=== PATIENT | male | born 1975 | race Two or more races ===

== ENCOUNTER 2017-08-30 23:18 | Inpatient (IN) | payer OTHER ==
[~2017-08-30] VITALS: Ht 167.6 cm; Wt 91.2 kg
[2017-08-31 03:13] VITALS: BP 151/96
[2017-08-31] MEDS ORDERED: IBUPROFEN 400 MG TABLET PO PRN (03:30)
[2017-08-31] MEDS ORDERED: HYDROCODONE/APAP 5/325MG 1 EACH TABLET PO PRN ×2 (03:30→04:00)
[2017-08-31] MEDS ORDERED: FEBU80TA PO (03:40)
[2017-08-31] MEDS ORDERED: OMEP40CA37 PO (03:40)
[2017-08-31 04:00] VITALS: BP 152/88
[2017-08-31] MEDS ORDERED: ZOLPIDEM TARTRATE 5 MG TABLET PO PRN (04:00)
[2017-08-31] MEDS ORDERED: INSULIN REGULAR, HUMAN 100 UNIT/ML 3 ML VIAL SQ PRN (04:00)
[2017-08-31] MEDS ORDERED: HYDROCODONE/APAP 10/325MG 1 EA TABLET PO PRN (04:00)
[2017-08-31] MEDS ORDERED: MAG HYDROX/AL HYDROX/SIMETH 30 ML UDC PO PRN (04:00)
[2017-08-31] MEDS ORDERED: MAGNESIUM HYDROXIDE 30 ML UDC PO PRN (04:00)
[2017-08-31] MEDS ORDERED: ONDANSETRON HCL/PF 4 MG/2 ML VIAL IVP PRN (04:00)
[2017-08-31] MEDS ORDERED: DEXTROSE 50%-WATER 50 ML DISP.SYRIN IV PRN ×2 (04:00→10:30)
[2017-08-31] MEDS ORDERED: ACETAMINOPHEN 325 MG TABLET PO PRN (04:00)
[2017-08-31] MEDS: IV NS 0.9% 1,000 ML IV PRN ×2 (04:11→15:18)
[2017-08-31] MEDS ORDERED: HYDROCODONE/APAP 5/325MG 1 EACH TABLET ONE (04:21)
[2017-08-31] MEDS ORDERED: BLOOD SUGAR DIAGNOSTIC 1 EACH STRIP IN SCH (07:30)
--- NOTE | 2017-08-31 07:38 | NUR ---
LEGAL ADMINISTRATIVE ASSISTANT NOTE PATIENT IN BED , ALL NEEDS ATTENDED, PLAN OF CARE DISCUSSED WITH PATIENT , PATIENT ALERT , ORIENTED X3 ,ON TELE MONITOR SR , CALL LIGHT WITHIN REACH, BLOOD SUGAR 306 MG\ DL ,CALLED PHARMACY TO BRING INSULIN COVERAGE , RESPIRATION EVEN UNLABORED , BED IN LOWEST AND LOCKED POSITION , ON IVF ORDERED, RT AC HL INTACT , WILL CONT TO MONITOR CLOSELY
[2017-08-31 07:39] LABS: BASOPHILS # (AUTO) 0.1 /CMM (0.0-0.2); BASOPHILS % (AUTO) 0.5 % (0.0-2.0); EOSINOPHILS # (AUTO) 0.4 /CMM (0.0-0.7); EOSINOPHILS % (AUTO) 3.6 % (0.0-6.0); HEMATOCRIT 43 % (39-51); HEMOGLOBIN 14.6 g/dL (13.5-17.5); LYMPHOCYTES # (AUTO) 2.5 /CMM (0.8-4.8); LYMPHOCYTES % (AUTO) 23.3 % (20.0-44.0); MEAN CORPUSCULAR HEMOGLOBIN 28 PG (26.0-33.0); MEAN CORPUSCULAR HGB CONC 34 g/dl (31.0-36.0); MEAN CORPUSCULAR VOLUME 82 fL (80-96); MONOCYTES # (AUTO) 0.7 /CMM (0.1-1.30); MONOCYTES % (AUTO) 6.9 % (2.0-12.0); NEUTROPHILS # (AUTO) 6.9 /CMM (1.8-8.9); NEUTROPHILS % (AUTO) 65.7 % (43.0-81.0); PLATELET COUNT (AUTO) 190 /CMM (150-450); RDW COEFFICIENT OF VARIATION 13.8 (11.5-15.0); RED BLOOD CELL COUNT(AUTO) 5.18 MIL/uL (4.5-6.0); WHITE BLOOD COUNT (AUTO) 10.5 K/uL (4.3-11.0)
[2017-08-31 08:00] VITALS: BP_SYST 141; BP_SYST 145; BP_DIAS 63; BP_DIAS 85
[2017-08-31 08:00] LABS: CALCIUM, SERUM 8.4 mg/dL (8.5-10.1); CREATININE 0.9 mg/dL (0.6-1.3); PHOSPHORUS 3.6 mg/dL (2.5-4.9); POTASSIUM 4.2 mmol/L (3.5-5.1)
[2017-08-31 08:07] LABS: THYROID STIMULATING HORMONE 3.232 uIU/mL (0.358-3.74)
[2017-08-31] MEDS: PANTOPRAZOLE 40 MG TABLET.DR PO SCH (08:34)
[2017-08-31] MEDS: predniSONE 10 MG TABLET PO SCH (08:35)
[2017-08-31] MEDS: LISINOPRIL (10MG) 10 MG TABLET PO SCH (08:35)
[2017-08-31] MEDS: HYDROXYCHLOROQUINE 200 MG TABLET PO SCH (08:35)
[2017-08-31] MEDS: METFORMIN 500 MG TABLET PO SCH ×2 (08:35→16:20)
[2017-08-31] MEDS: COLCHICINE 0.6 MG TABLET PO SCH (08:35)
[2017-08-31] MEDS ORDERED: PROBENECID 500 MG TABLET PO SCH (09:00)
--- NOTE | 2017-08-31 10:25 | NUR ---
CAN RUNNER NOTE X RAY LT KNEE DONE , ALL NEEDS ATTENDED, UA COLLECTED ORDERED ,WILL CONT ON IVF, NOT IN ACUTE DISTRESS
--- NOTE | 2017-08-31 10:28 | NUR ---
MULTI SLIDE MACHINE TENDER NOTE SEEN BY ASHLEY RN LEATHER STRETCHER AWARE THAT BLOOD SUGAR IN AM 306 MG\ DL INCREASED COVERAGE WITH MOD SLIDING SCALE
[2017-08-31] MEDS ORDERED: *INSULIN REGULAR(HUMULIN R)HUM 100 UNIT/ML VIAL SQ PRN (10:30)
[2017-08-31] MEDS: INSULIN REGULAR, HUMAN 100 UNIT/ML 3 ML VIAL SQ PRN ×2 (12:17→17:29)
[2017-08-31 12:20] VITALS: BP 116/75
[2017-08-31] MEDS: BLOOD SUGAR DIAGNOSTIC 1 EACH STRIP VI SCH ×3 (12:22→21:37)
--- NOTE | 2017-08-31 14:03 | NUR ---
Patient lives in [place] with family. He is ambulatory and independent with adl's. Will advice patient to f/u with pcp once discharge. Addendum: 08/31/17 at 1404 by DAYTON RIVAS RN Amended: Links added.
--- NOTE | 2017-08-31 15:30 | NUR ---
PULMONARY FUNCTION TECHNOLOGIST NOTE CONT ON IVF ORDERED ,ABLE TO URINATE WELL ABLE TO TO GO BR , ALL NEEDS ATTENDED ,NO S\S HYPO \HYPERGLYCEMIC REACTION NOTED ,WILL CONT TO MONITOR CLOSELY
[2017-08-31 16:00] VITALS: BP 107/72
--- NOTE | 2017-08-31 18:44 | NUR ---
MS RN NOTE ON IVF ORDERED , HAVING DINNER ,ABLE TO EAT SELF, NO C\O ANY DISCOMFORT AT THIS TIME,FAMILY AT BEDSIDE
--- NOTE | 2017-08-31 19:30 | NUR ---
RN INITIAL NOTES RECEIVED PATIENT SITTING UP AT EDGE OF BED. PATIENT IS ALERT AND ORIENTED, ABLE TO MAKE NEEDS KNOWN. PATIENT DENIES ANY PAIN AND DISCOMFORT AT THIS TIME. ON ROOM AIR WITH NO DISTRESS. PATIENT ABLE TO AMBULATE WITH STEADY GAIT, NO DIFFICULTY AND NO WEAKNESS NOTED. IVF ORDERED ON PATIENT'S R AC, FLUSHED AND PATENT, NO SIGNS OF INFILTRATION. PATIENT'S NEEDS ANTICIPATED AND MET. SAFETY AND COMFORT ENSURED. BED IN LOW AND LOCKED POSITION. CALL LIGHT IN REACH. WILL MONITOR FOR ANY CHANGES IN CONDITION.
[2017-08-31 20:00] VITALS: BP 96/53
[2017-08-31] MEDS ORDERED: INSULIN DETEMIR 100 UNIT/ML CARTRIDGE SQ SCH (22:00)
[2017-09-01] MEDS: IV NS 0.9% 1,000 ML IV PRN (01:33)
[2017-09-01 04:00] VITALS: BP 102/72
--- NOTE | 2017-09-01 07:26 | NUR ---
RN NOTES PATIENT WAS REFUSING SUGAR CHECK THIS MORNING. CHECKED NOW AND IS 262. WILL ADMIN INSULIN.
[2017-09-01 08:00] VITALS: BP 123/78
[2017-09-01] MEDS: COLCHICINE 0.6 MG TABLET PO SCH (08:29)
[2017-09-01 08:30] VITALS: BP 123/78
[2017-09-01] MEDS: HYDROXYCHLOROQUINE 200 MG TABLET PO SCH (08:30)
[2017-09-01] MEDS: METFORMIN 500 MG TABLET PO SCH (08:30)
[2017-09-01] MEDS: LISINOPRIL (10MG) 10 MG TABLET PO SCH (08:30)
[2017-09-01] MEDS: predniSONE 10 MG TABLET PO SCH (08:30)
[2017-09-01] MEDS: PANTOPRAZOLE 40 MG TABLET.DR PO SCH (08:30)
[2017-09-01] MEDS: INSULIN REGULAR, HUMAN 100 UNIT/ML 3 ML VIAL SQ PRN ×2 (08:31→11:40)
[2017-09-01] MEDS: BLOOD SUGAR DIAGNOSTIC 1 EACH STRIP VI SCH ×2 (08:33→11:40)
[2017-09-01] MEDS ORDERED: PROBENECID 500 MG TABLET PO SCH (09:00)
[2017-09-01] MEDS ORDERED: METF500T4 PO (13:47)
[2017-09-01] MEDS ORDERED: LISI10TA59 PO (13:47)
[2017-09-01] MEDS ORDERED: Blood Sugar Diagnostic VI (13:47)
[2017-09-01] MEDS ORDERED: *INS REG SQ (13:47)
[2017-09-01] MEDS ORDERED: INSU100I19 SQ (13:47)
--- NOTE | 2017-09-01 15:01 | NUR ---
RELAY RECORD CLERK NOTE DISCHARGE INSTRUCTIONS AND TEACHING GIVEN TO PATIENT AND ABLE TO UNDERSTAND. ALL PAPERWORK SIGNED AND BELONGINGS ACCOUNTED FOR. IV REMOVED AND PRESSURE APPLIED, NO BLEEDING NOTED AT THE SITE. FLU SHOT NOT GIVEN PATIENT REFUSES VACCINE. PATIENT LEFT IN STABLE CONDITION, NO SOB OR DISTRESS, PATIENT DENIES PAIN. PATIENT LEFT AMBULATORY, BY CAR TO HOME
== END 2017-09-01 14:59 | disposition home or self-care (01) | DRG 420 ==
LOC: TELE1 08-31 02:50 → MEDSG1 08-31 11:00
PROVIDERS: ADMIT Nurse Practitioner Acute Care; ATTEND Nurse Practitioner Acute Care
DX: E11.00 Type 2 diabetes mellitus with hyperosmolarity without nonketotic hyperglycemic-hyperosmolar coma (NKHHC) (principal); E88.81 Metabolic syndrome and other insulin resistance; I10 Essential (primary) hypertension; E87.1 Hypo-osmolality and hyponatremia; D72.829 Elevated white blood cell count, unspecified; M10.9 Gout, unspecified; E78.5 Hyperlipidemia, unspecified; E11.65 Type 2 diabetes mellitus with hyperglycemia; M06.9 Rheumatoid arthritis, unspecified; K21.9 Gastro-esophageal reflux disease without esophagitis; E66.9 Obesity, unspecified; Z68.32 Body mass index [BMI] 32.0-32.9, adult; E78.1 Pure hyperglyceridemia; Z79.4 Long term (current) use of insulin; Z79.84 Long term (current) use of oral hypoglycemic drugs; Z79.899 Other long term (current) drug therapy
CPT/HCPCS: 36415; 73564-TC; 80048-TC; 80061-TC; 82962-TC; 83735-TC; 83935-TC; 84100-TC; 84300-TC; 84443-TC; 85025-TC; 87081-TC; J1815; J7030; Z7610

== ENCOUNTER 2018-04-26 01:53 | Inpatient (IN) | payer OTHER ==
[~2018-04-26] VITALS: Ht 167.6 cm; Wt 98.9 kg
[~2018-04-26 01:53] MED LIST: *INS REG SQ; Blood Sugar Diagnostic VI; FEBU80TA PO; INSU100I19 SQ; LISI10TA59 PO; METF500T6 PO; OMEP40CA37 PO
--- NOTE | 2018-04-26 06:25 | NUR ---
RN NOTE PT WAS TRANSFERRED FROM [place] AND ARRIVED TO UNIT AT 0625. LEFT HAND IV NOTED. VITALS: BP- 136/92 HR-90 RR-16. WILL ENDORSE TO ESTEFANI TINOCO FOR SUNSHINE
[2018-04-26 08:00] VITALS: BP 129/79
--- NOTE | 2018-04-26 08:00 | NUR ---
PT. ADM. TO RM.306-1.ALERT AND ORIENTED X4.STATES SOME PAIN RT. ELBOW.
[2018-04-26] MEDS ORDERED: LEFL20TA PO (08:34)
[2018-04-26] MEDS ORDERED: SULI200T4 PO (08:34)
[2018-04-26] MEDS ORDERED: LISI10TA5 PO (08:34)
[2018-04-26] MEDS ORDERED: COLC0.6C PO (08:34)
[2018-04-26] MEDS ORDERED: INSU100I14 SQ (08:34)
[2018-04-26] MEDS ORDERED: METF500T6 PO (08:34)
[2018-04-26] MEDS ORDERED: ATOR10TA PO (08:34)
[2018-04-26] MEDS ORDERED: INSU100I26 SQ (08:34)
[2018-04-26] MEDS ORDERED: ALLO300T2 PO (08:34)
[2018-04-26] MEDS ORDERED: PROB500T9 PO (08:34)
[2018-04-26] MEDS ORDERED: DEXTROSE 50%-WATER 50 ML DISP.SYRIN IV PRN ×2 (09:00→10:30)
[2018-04-26] MEDS: BLOOD SUGAR DIAGNOSTIC 1 EACH STRIP IN SCH ×4 (09:14→21:41)
[2018-04-26] MEDS: INSULIN REGULAR, HUMAN 100 UNIT/ML 3 ML VIAL SQ PRN ×4 (09:16→21:53)
[2018-04-26] MEDS ORDERED: ONDANSETRON HCL/PF 4 MG/2 ML VIAL IVP PRN (10:30)
[2018-04-26] MEDS ORDERED: ZOLPIDEM TARTRATE 5 MG TABLET PO PRN (10:30)
[2018-04-26] MEDS ORDERED: ACETAMINOPHEN 325 MG TABLET PO PRN (10:30)
[2018-04-26] MEDS ORDERED: HYDROCODONE/APAP 5/325MG 1 EACH TABLET PO PRN (10:30)
[2018-04-26] MEDS ORDERED: MAG HYDROX/AL HYDROX/SIMETH 30 ML UDC PO PRN (10:30)
[2018-04-26] MEDS ORDERED: MAGNESIUM HYDROXIDE 30 ML UDC PO PRN (10:30)
[2018-04-26] MEDS ORDERED: HYDROCODONE/APAP 10/325MG 1 EA TABLET PO PRN (10:30)
--- NOTE | 2018-04-26 10:30 | NUR ---
FAMILY IN TO VISIT.
[2018-04-26] MEDS: IV NS 0.9% 1,000 ML IV PRN (11:29)
[2018-04-26] MEDS: CEFTRIAXONE 1 G in IV D5W 50 ML IV SCH (11:30)
[2018-04-26] MEDS ORDERED: VANCOMYCIN 1.25 GM in IV D5W 500 ML IV SCH (12:00)
[2018-04-26] MEDS ORDERED: BLOOD SUGAR DIAGNOSTIC 1 EACH STRIP IN SCH (12:00)
[2018-04-26] MEDS ORDERED: FEE PK DOSING 1 MIN EA MC ONE (12:20)
[2018-04-26] MEDS: VANCOMYCIN 1 GM in IV D5W 250 ML IV SCH (14:31)
--- NOTE | 2018-04-26 15:00 | NUR ---
PHOTO DONE OF RT. ARM,MRSA SMEAR DONE.
[2018-04-26 16:00] VITALS: BP 127/75
--- NOTE | 2018-04-26 18:00 | NUR ---
NO CHG. IN STATUS.
[2018-04-26] MEDS: COLCHICINE 0.6 MG TABLET PO SCH (18:13)
[2018-04-26] MEDS ORDERED: INSU300I SQ (18:17)
[2018-04-26] MEDS ORDERED: ERGO500040 PO (18:17)
--- NOTE | 2018-04-26 19:25 | NUR ---
MSRN VISITOR AT BEDSIDE
[2018-04-26 20:00] VITALS: BP 135/83
[2018-04-26] MEDS: ATORVASTATIN 10 MG TABLET PO SCH (21:40)
[2018-04-26] MEDS: SULINDAC 200 MG TABLET PO SCH (21:41)
[2018-04-26] MEDS: INSULIN GLARGINE, 100 UNIT/ML CARTRIDGE SQ SCH (21:56)
--- NOTE | 2018-04-26 22:00 | NUR ---
DCRN BLOOD SUGAR WAS 228 COVERED WITH 20 UNITS LANTUS AND 4 UNITS OF REG INSULIN SQ PER S/S. SNACKS PROVIDED ATE WELL
[2018-04-27] MEDS: VANCOMYCIN 1 GM in IV D5W 250 ML IV SCH ×3 (00:28→20:49)
--- NOTE | 2018-04-27 02:36 | NUR ---
MSRN SLEEPING APPEARS COMFORTABLE
[2018-04-27 06:20] LABS: BASOPHILS % (AUTO) 0.3 % (0.0-2.0); EOSINOPHILS % (AUTO) 4.1 % (0.0-6.0); HEMATOCRIT 43 % (39-51); HEMOGLOBIN 14.7 g/dL (13.5-17.5); LYMPHOCYTES # (AUTO) 1.8 /CMM (0.8-4.8); LYMPHOCYTES % (AUTO) 18.8 % (20.0-44.0); MEAN CORPUSCULAR HEMOGLOBIN 29 PG (26.0-33.0); MEAN CORPUSCULAR HGB CONC 34 g/dl (31.0-36.0); MEAN CORPUSCULAR VOLUME 85 fL (80-96); MONOCYTES # (AUTO) 0.9 /CMM (0.1-1.30); MONOCYTES % (AUTO) 9.1 % (2.0-12.0); NEUTROPHILS # (AUTO) 6.6 /CMM (1.8-8.9); NEUTROPHILS % (AUTO) 67.7 % (43.0-81.0); PLATELET COUNT (AUTO) 186 /CMM (150-450); RDW COEFFICIENT OF VARIATION 13.7 (11.5-15.0); RED BLOOD CELL COUNT(AUTO) 5.05 MIL/uL (4.5-6.0); WHITE BLOOD COUNT (AUTO) 9.8 K/uL (4.3-11.0)
--- NOTE | 2018-04-27 06:45 | NUR ---
MSRN SLEEPING EASILY AWAKENED, WILL CHECK BLOOD SUGAR. PAIN RIGHT ELBOW TOLERABLE. NO NEEDS MADE.
[2018-04-27 06:47] LABS: CALCIUM, SERUM 8.9 mg/dL (8.5-10.1); CREATININE 1.1 mg/dL (0.6-1.3); PHOSPHORUS 3.7 mg/dL (2.5-4.9); POTASSIUM 4.2 mmol/L (3.5-5.1)
[2018-04-27] MEDS: INSULIN REGULAR, HUMAN 100 UNIT/ML 3 ML VIAL SQ PRN ×4 (07:49→21:51)
[2018-04-27 08:00] VITALS: BP 134/88
[2018-04-27] MEDS: BLOOD SUGAR DIAGNOSTIC 1 EACH STRIP IN SCH ×4 (08:27→21:42)
[2018-04-27] MEDS: IV NS 0.9% 1,000 ML IV PRN ×2 (08:27→21:03)
[2018-04-27] MEDS: LEFLUNOMIDE 10 MG TABLET PO SCH (08:29)
[2018-04-27] MEDS: COLCHICINE 0.6 MG TABLET PO SCH ×2 (08:29→18:22)
[2018-04-27] MEDS: ALLOPURINOL 100 MG TABLET PO SCH (08:30)
[2018-04-27] MEDS: SULINDAC 200 MG TABLET PO SCH ×2 (08:30→18:22)
[2018-04-27] MEDS: PANTOPRAZOLE 40 MG TABLET.DR PO SCH (08:31)
[2018-04-27] MEDS: LISINOPRIL (10MG) 10 MG TABLET PO SCH (08:32)
[2018-04-27] MEDS: CEFTRIAXONE 1 G in IV D5W 50 ML IV SCH (11:30)
[2018-04-27 16:00] VITALS: BP 119/73
--- NOTE | 2018-04-27 18:00 | NUR ---
PT. ALERT AND ORIENTED X4. NO COMPLAINTS OFFERED. IV INFUSING,VS STABLE. FAMILY IN TO VISIT.DR. ESPANA IN TO SEE PT.
[2018-04-27] MEDS: LACTOBACILLUS RHAMNOSUS GG 1 EACH CAP.SPRINK PO SCH (18:22)
--- NOTE | 2018-04-27 19:30 | NUR ---
RN NOTES RECEIVED PATIENT IN BED AWAKE, AO X 3, ABLE TO MAKE NEEDS KNOWN. NO ACUTE DISTRESS NOTED. DENIES ANY PAIN AT THIS TIME. IV SITE PATENT, INTACT. SAFETY REMINDERS GIVEN. ON LOW BED WITH BILATERAL UPPER SIDE RAILS UP. CALL STEELE WITHIN EASY REACH. WILL CONTINUE TO MONITOR.
[2018-04-27 20:00] VITALS: BP 126/74
[2018-04-27] MEDS: INSULIN GLARGINE, 100 UNIT/ML CARTRIDGE SQ SCH (21:44)
[2018-04-27] MEDS: ATORVASTATIN 10 MG TABLET PO SCH (21:46)
[2018-04-28] MEDS: VANCOMYCIN 1 GM in IV D5W 250 ML IV SCH ×2 (04:55→12:00)
--- NOTE | 2018-04-28 06:30 | NUR ---
RN NOTES PATIENT ASLEEP, EASILY AROUSABLE. RESPIRATIONS EVEN. NO SIGNS OF PAIN NOTED. DUE MEDS GIVEN WITH NO ASE NOTED. NEEDS ATTENDED. NO SYMPTOMS OF HYPER/HYPOGLYCEMIA. SAFETY PRECAUTIONS AND COMFORT MEASURES IN PLACE. WILL GIVE REPORT TO DAY SHIFT FOR CONTINUITY OF CARE.
[2018-04-28 06:32] LABS: BASOPHILS % (AUTO) 0.3 % (0.0-2.0); CALCIUM, SERUM 8.9 mg/dL (8.5-10.1); CREATININE 1.1 mg/dL (0.6-1.3); EOSINOPHILS % (AUTO) 5.2 % (0.0-6.0); HEMATOCRIT 42 % (39-51); HEMOGLOBIN 14.4 g/dL (13.5-17.5); LYMPHOCYTES # (AUTO) 1.8 /CMM (0.8-4.8); LYMPHOCYTES % (AUTO) 19.7 % (20.0-44.0); MEAN CORPUSCULAR HEMOGLOBIN 29 PG (26.0-33.0); MEAN CORPUSCULAR HGB CONC 35 g/dl (31.0-36.0); MEAN CORPUSCULAR VOLUME 84 fL (80-96); MONOCYTES # (AUTO) 0.8 /CMM (0.1-1.30); MONOCYTES % (AUTO) 8.4 % (2.0-12.0); NEUTROPHILS # (AUTO) 6.2 /CMM (1.8-8.9); NEUTROPHILS % (AUTO) 66.4 % (43.0-81.0); PLATELET COUNT (AUTO) 196 /CMM (150-450); RDW COEFFICIENT OF VARIATION 13.4 (11.5-15.0); RED BLOOD CELL COUNT(AUTO) 4.96 MIL/uL (4.5-6.0); WHITE BLOOD COUNT (AUTO) 9.3 K/uL (4.3-11.0)
[2018-04-28] MEDS: BLOOD SUGAR DIAGNOSTIC 1 EACH STRIP IN SCH ×2 (06:34→12:00)
[2018-04-28] MEDS: INSULIN REGULAR, HUMAN 100 UNIT/ML 3 ML VIAL SQ PRN (06:36)
--- NOTE | 2018-04-28 07:35 | NUR ---
MS RN OPENING NOTE PATIENT IS ALERT AND ORIENTED x4. NO PAIN AT THIS TIME. NO SOB OR DISTRESS NOTED. CALL LIGHT WITHIN REACH AND SAFETY MEASURES IMPLEMENTED. ABLE TO COMMUNICATE NEEDS. IV INTACT AND PATENT NO REDNESS OR SWELLING NOTED WITH IV FLUIDS RUNNING AT THIS TIME. BLOOD SUGAR TO BE MONITORED AND INSULIN TO BE GIVEN ACCORDINGLY. ON ROOM AIR TOLERATING WELL AT 99%. WILL CONTINUE TO MONITOR THROUGHOUT SHIFT
[2018-04-28 08:00] VITALS: BP 154/87
[2018-04-28 08:19] VITALS: BP 134/87
[2018-04-28] MEDS: COLCHICINE 0.6 MG TABLET PO SCH (08:19)
[2018-04-28] MEDS: ALLOPURINOL 100 MG TABLET PO SCH (08:19)
[2018-04-28] MEDS: LACTOBACILLUS RHAMNOSUS GG 1 EACH CAP.SPRINK PO SCH (08:19)
[2018-04-28] MEDS: PANTOPRAZOLE 40 MG TABLET.DR PO SCH (08:19)
[2018-04-28] MEDS: LISINOPRIL (10MG) 10 MG TABLET PO SCH (08:19)
[2018-04-28] MEDS: LEFLUNOMIDE 10 MG TABLET PO SCH (08:20)
[2018-04-28] MEDS: SULINDAC 200 MG TABLET PO SCH (08:20)
--- NOTE | 2018-04-28 09:50 | NUR ---
WOUND CARE CONSULT: PT HAS RESOLVING SWELLING TO RT ELBOW. NO OPEN WOUNDS NOTED. PT STATES FEELS MUCH BETTER. DEFER TO MD FOR ELBOW. WILL SEE PRN
[2018-04-28] MEDS: CEFTRIAXONE 1 G in IV D5W 50 ML IV SCH (10:26)
--- NOTE | 2018-04-28 10:45 | NUR ---
MAYELIN was informed by Dr. Terry Rosenthal that pt. would like a verification of admission letter for his employer. MAYELIN typed letter and gave it to the pt.
[2018-04-28] MEDS ORDERED: SULF1TAB48 PO (12:09)
--- NOTE | 2018-04-28 12:50 | NUR ---
TELEPHONE CLAIMS REPRESENTATIVE NOTE PATIENT SENT HOME IN STABLE CONDITION. ALL DUE MEDICATIONS GIVEN ORDERED. ALL NURSING CARE NEEDS ATTENDED TO NEEDED. IV REMOVED, SKIN INTACT. ALL BELONGINGS ACCOUNTED FOR AND WITH PATIENT AT DISCHARGE. ALERT AND ORIENTED x4, AMBULATORY. ABLE TO MAKE NEEDS KNOWN. VSS. DISCHARGE INSTRUCTIONS GIVEN TO PATIENT AND MOTHER AT BEDSIDE, BOTH ABLE TO RETURN VERBALIZATION OF INSTRUCTIONS BACK. PRESCRIPTION SENT ELECTRONICALLY TO [facility] IN [facility], CALLED AND CONFIRMED PRESCRIPTION. PATIENT REFUSED TO HAVE WOUND PICTURE DOCUMENTED AT DISCHARGE. LEFT VIA PRIVATE CAR WITH MOTHER.
== END 2018-04-28 12:50 | disposition home or self-care (01) | DRG 720 ==
LOC: MED 07:29
PROVIDERS: ADMIT Internal Medicine; ATTEND Internal Medicine
DX: A41.9 Sepsis, unspecified organism (principal); E87.2 Acidosis; E87.1 Hypo-osmolality and hyponatremia; L03.113 Cellulitis of right upper limb; E86.1 Hypovolemia; E78.5 Hyperlipidemia, unspecified; I10 Essential (primary) hypertension; E11.65 Type 2 diabetes mellitus with hyperglycemia; M06.9 Rheumatoid arthritis, unspecified; E66.9 Obesity, unspecified; K21.9 Gastro-esophageal reflux disease without esophagitis; M10.9 Gout, unspecified
CPT/HCPCS: 36415; 80048-TC; 80061-TC; 80202-TC; 82962-TC; 83605-TC; 83735-TC; 84100-TC; 85025-TC; 87081-TC; A6403; J0696; J1815; J3370; J7030; J7060

== ENCOUNTER 2018-10-11 16:37 | Inpatient (IN) | payer OTHER ==
[~2018-10-11] VITALS: Ht 167.6 cm; Wt 107.5 kg
[2018-10-11 16:00] VITALS: BP 128/71
[~2018-10-11 16:37] MED LIST changes: -*INS REG SQ; +ALLO300T2 PO; +ATOR10TA PO; -Blood Sugar Diagnostic VI; +COLC0.6C PO; +ERGO500040 PO; -FEBU80TA PO; -INSU100I19 SQ; +INSU300I SQ; +LEFL20TA PO; +LISI10TA5 PO; -LISI10TA59 PO; +METF-440 PO; -METF500T6 PO; +PROB500T9 PO; +SULF1TAB48 PO; +SULI200T4 PO
--- NOTE | 2018-10-11 16:42 | NUR ---
MS ENCODING CLERK NOTES RECEIVED PT FROM AMBULANCE STAFF IN STABLE CONDITION .PT IS A.O X4, NO SOB OR ACUTE SIGNS OF DISTRESS NOTED. BREATHING IS EVEN AND UNLABORED. PT ON RA AND SATING WELL. PT WILL BE ADMITTED UNDER ASHLEY (DEVELOPMENT ASSOCIATE) FOR POSSIBLE RIGHT WRIST SEPTIC JOINT. IV TO LEFT HAND 22G NOTED TO BE PATENT AND INTACT. NO REDNESS OR SIGNS OF INFILTRATION NOTED. MRSA SWAB COMPLETED. BELONGINGS VERIFIED BY TOY DEPARTMENT MANAGER. VSS. ADMSIION PHOTOCS TAKEN AND PLACED IN PT'S CHART. PT ORIENTED TO ROOM AND USE OF CALL LIGHT. BED IN LOW LOCKED POSITION, SIDE RAILS UP X2, CALL LIGHT WITHIN REACH. WILL CONTINUE ADMISSION PROCESS AND AWAIT FRO FURTHER DEVELOPMENT ASSOCIATE ORDERS.
[2018-10-11] MEDS ORDERED: DEXTROSE 50%-WATER 50 ML DISP.SYRIN IV PRN (17:00)
[2018-10-11] MEDS ORDERED: HYDROCODONE/APAP 5/325MG 1 EACH TABLET PO PRN (17:00)
[2018-10-11] MEDS ORDERED: ONDANSETRON HCL/PF 4 MG/2 ML VIAL IVP PRN (17:00)
[2018-10-11] MEDS ORDERED: MAGNESIUM HYDROXIDE 30 ML UDC PO PRN (17:00)
[2018-10-11] MEDS ORDERED: ACETAMINOPHEN 325 MG TABLET PO PRN (17:00)
[2018-10-11] MEDS ORDERED: MAG HYDROX/AL HYDROX/SIMETH 30 ML UDC PO PRN (17:00)
[2018-10-11] MEDS ORDERED: ZOLPIDEM TARTRATE 5 MG TABLET PO PRN (17:00)
[2018-10-11] MEDS: BLOOD SUGAR DIAGNOSTIC 1 EACH STRIP IN SCH ×2 (17:18→22:42)
[2018-10-11] MEDS: IV NS 0.9% 1,000 ML IV PRN (17:18)
[2018-10-11] MEDS: INSULIN REGULAR, HUMAN 100 UNIT/ML 3 ML VIAL SQ PRN ×2 (17:31→22:43)
[2018-10-11] MEDS: CEFTRIAXONE 1 G in IV D5W 50 ML IV SCH (17:47)
[2018-10-11 18:26] VITALS: BP 128/71
--- NOTE | 2018-10-11 18:38 | NUR ---
MS RN CLOSING NOTES PT REMAINS STABLE SINCE ADMISSION. IV REMAINS PATENT AND INTACT. HE CONTINUES TO TOLERATE NS AND ABX INFUSION WELL. HE DENIES PAIN AT THIS TIME. SAFETY MEASURES REMAIN IN PLACE. WILL ENDORSE TO NIGHTSHIFT RN FOR SUNSHINE
[2018-10-11 19:26] LABS: CALCIUM, SERUM 7.9 mg/dL (8.5-10.1); CREATININE 1.2 mg/dL (0.6-1.3); POTASSIUM 3.8 mmol/L (3.5-5.1)
--- NOTE | 2018-10-11 19:30 | NUR ---
MS/RN NOTES RECEIVED PT. SITTING UP IN BED. PT. IS AWAKE, ALERT AND ORIENTED X4. BREATHING EVEN AND UNLABORED ON ROOM AIR. NO SOB, RESPIRATORY DISTRESS OR COMPLAINTS OF PAIN NOTED AT THIS TIME. PT. WITH LEFT HAND 22 GAUGE PERIPHERAL IV PRESENT, PATENT AND INTACT ADMINISTERING TO PT. NS @ 75 ML/HR. PT. WITH RIGHT HAND NON-PITTING EDEMA PRESENT. EDUCATED PT. ON ELEVATING RIGHT HAND ON PILLOWS. PT. FAMILY MEMBERS PRESENT AT BEDSIDE. BED LOCKED AND IN LOWEST POSITION, SIDE RAILS UP X2, CALL LIGHT WITHIN REACH, WILL CONTINUE TO MONITOR.
[2018-10-11] MEDS ORDERED: FEE PK DOSING 1 MIN EA MC ONE (19:40)
[2018-10-11] MEDS ORDERED: VANCOMYCIN 1 GM in IV D5W 250ml IV ONE (20:00)
[2018-10-11 20:23] VITALS: BP 126/84
[2018-10-11] MEDS: HYDROCODONE/APAP 10/325MG 1 EA TABLET PO PRN (20:51)
[2018-10-12] MEDS: VANCOMYCIN 0.75 GM in IV NS 0.9% 250 ML IV SCH ×2 (04:27→11:39)
--- NOTE | 2018-10-12 06:09 | NUR ---
MS/RN NOTES PT. IS LYING IN BED RESTING. BREATHING EVEN AND UNLABORED ON ROOM AIR. NO SOB, RESPIRATORY DISTRESS OR COMPLAINTS OF PAIN NOTED AT THIS TIME. PT. WITH LEFT HAND 22 GAUGE PERIPHERAL IV PRESENT, PATENT AND INTACT ADMINISTERING TO PT. NS @ 75 ML/HR. ALL PT. NEEDS MET. BED LOCKED AND IN LOWEST POSITION, SIDE RAILS UP X2, CALL LIGHT WITHIN REACH, WILL ENDORSE TO DAYSHIFT NURSE FOR CONTINUITY OF CARE.
[2018-10-12] MEDS: INSULIN REGULAR, HUMAN 100 UNIT/ML 3 ML VIAL SQ PRN ×4 (06:55→21:41)
[2018-10-12] MEDS: BLOOD SUGAR DIAGNOSTIC 1 EACH STRIP IN SCH ×4 (06:56→21:37)
[2018-10-12 07:22] LABS: BASOPHILS # (AUTO) 0.1 /CMM (0.0-0.2); BASOPHILS % (AUTO) 0.6 % (0.0-2.0); EOSINOPHILS % (AUTO) 3.4 % (0.0-6.0); HEMATOCRIT 41 % (39-51); HEMOGLOBIN 14.5 g/dL (13.5-17.5); LYMPHOCYTES # (AUTO) 1.4 /CMM (0.8-4.8); LYMPHOCYTES % (AUTO) 16.4 % (20.0-44.0); MEAN CORPUSCULAR HGB CONC 35 g/dl (31.0-36.0); MEAN CORPUSCULAR VOLUME 82 fL (80-96); MONOCYTES # (AUTO) 0.7 /CMM (0.1-1.30); MONOCYTES % (AUTO) 8.7 % (2.0-12.0); NEUTROPHILS # (AUTO) 6.1 /CMM (1.8-8.9); NEUTROPHILS % (AUTO) 70.9 % (43.0-81.0); PLATELET COUNT (AUTO) 166 /CMM (150-450); RED BLOOD CELL COUNT(AUTO) 5.07 MIL/uL (4.5-6.0); WHITE BLOOD COUNT (AUTO) 8.6 K/uL (4.3-11.0)
--- NOTE | 2018-10-12 07:37 | NUR ---
MS RN OPENING NOTE RECEIVED PT IN BED, ALERT AND ORIENTED X4. DENIES N/V, CHEST PAIN, SOB. BREATHING IS EVEN AND UNLABORED ON ROOM AIR. RATES PAIN 9/10 IN THE RIGHT WRIST, WILL ADMINISTER PAIN MEDICATION ORDERED PENDING VS CHECK. L HAND #22G IV IS INFUSING NS @ 75ML/HR WITHOUT REDNESS OR SWELLING. ALL NEEDS ATTENDED TO, BED IS LOCKED AND IN LOWEST POSITION, SIDE RAILS UP X2, CALL LIGHT WITHIN REACH.
[2018-10-12 07:39] LABS: CALCIUM, SERUM 8.3 mg/dL (8.5-10.1); CREATININE 0.9 mg/dL (0.6-1.3); MAGNESIUM 1.6 mg/dL (1.8-2.4); PHOSPHORUS 2.8 mg/dL (2.5-4.9); POTASSIUM 3.9 mmol/L (3.5-5.1)
[2018-10-12 08:00] VITALS: BP 141/90
[2018-10-12] MEDS: HYDROCODONE/APAP 10/325MG 1 EA TABLET PO PRN (08:15)
--- NOTE | 2018-10-12 09:04 | NUR ---
MS RN NOTE CONTACTED ASHLEY METZGER NP REGARDING PAIN CONTROL OPTIONS. PER PT, THE NORCO 10-325MG DOES NOT ADEQUATELY CONTROL HIS PAIN, PT IS REPORTING PAIN LEVEL OF 7/10 AFTER ADMINISTRATION. AWAITING RESPONSE.
[2018-10-12] MEDS: IV NS 0.9% 1,000 ML IV PRN (11:41)
[2018-10-12] MEDS ORDERED: Magnesium 1GM/D5W 100ML PREMIX 100 ML IV ONE (12:00)
[2018-10-12] MEDS ORDERED: MORPHINE SULFATE INJ 4 MG/ML DISP.SYRIN IV PRN (12:00)
--- NOTE | 2018-10-12 12:29 | NUR ---
MS DIRECT MARKETING ANALYST CONSULT DR. TAPIA AT THE BEDSIDE FOR ORTHO CONSULT, RECEIVED ORDERS FOR MRI OF THE RIGHT WRIST AND HAND, CRP AND ESR. PER DR. TAPIA HE WILL COME BACK TO SEE THE PT AFTER IMAGING IS COMPLETED.
[2018-10-12] MEDS: HYDROMORPHONE 1 MG/1 ML DISP.SYRIN IV PRN ×2 (12:41→17:20)
[2018-10-12] MEDS ORDERED: HYDROCODONE/APAP 10/325MG 1 EA TABLET PO PRN (13:00)
[2018-10-12] MEDS: LEFLUNOMIDE 10 MG TABLET PO SCH (14:08)
[2018-10-12 15:50] VITALS: BP 129/83
[2018-10-12 16:00] VITALS: BP 129/83
--- NOTE | 2018-10-12 16:00 | NUR ---
RN PT OFF UNIT PT OFF UNIT FOR MRI. CHECKLIST SIGNED.
--- NOTE | 2018-10-12 17:12 | NUR ---
MS RN NOTE PT BACK PT BACK FROM MRI IN MEDICALLY STABLE CONDITION.
[2018-10-12] MEDS: SULINDAC 200 MG TABLET PO SCH (17:19)
[2018-10-12] MEDS: PROBENECID 500 MG TABLET PO SCH (17:19)
[2018-10-12] MEDS: ALLOPURINOL 100 MG TABLET PO SCH (17:20)
[2018-10-12] MEDS: CEFTRIAXONE 1 G in IV D5W 50 ML IV SCH (17:20)
[2018-10-12] MEDS: COLCHICINE 0.6 MG TABLET PO SCH (17:20)
--- NOTE | 2018-10-12 17:51 | NUR ---
MS [facility] RECORDS CONTACTED [facility] TO BEING PROCESS OF RETRIEVING RECORD OF ASPIRATION PERFORMED IN THE ER REQUESTED BY DR. TAPIA. SENT TO VOICEMAIL, LEFT A VOICEMAIL INFORMING STAFF TO CALL BACK AT [phone] REGARDING RELEASE OF RECORDS FOR PT.
--- NOTE | 2018-10-12 18:20 | NUR ---
MS RN DR. WEBB AT THE BEDSIDE DR. WEBB AT THE BEDSIDE FOR CONSULT AND ASPIRATION. NO FLUID UPON ASPIRATION, PER DR. WEBB ORTHO WILL CONTINUE TO FOLLOW, NO NEW ORDERS AT THIS TIME. ADVISED TO ELEVATE ARM AND PLACE ICE PACKS.
--- NOTE | 2018-10-12 18:34 | NUR ---
MS RN CLOSING NOTE PT IN BED, ALERT AND ORIENTED X4. DENIES N/V, CHEST PAIN, SOB. BREATHING IS EVEN AND UNLABORED ON ROOM AIR. NEUROVASCULAR STATUS AT BASELINE. L HAND #22G IV IS INFUSING NS @ 75ML/HR WITHOUT REDNESS OR SWELLING. ALL NEEDS ATTENDED TO, BED IS LOCKED AND IN LOWEST POSITION, SIDE RAILS UP X2, CALL LIGHT WITHIN REACH. WILL ENDORSE TO LEAD NITRATE PROCESSOR RN FOR CONTINUITY OF CARE.
--- NOTE | 2018-10-12 19:00 | NUR ---
ESTEFANI MS NOTES RECEIVED PATIENT IN BED AWAKE ALERT AND ORIENTED X4, ABLE TO MAKE NEEDS KNOWN, RESPIRATIONS EVEN AND UNLABORED WITH EQUAL RISE AND FALL OF CHEST, RIGHT WRIST NOTED WITH SWELLING, ELEVATED AND PROVIDED ICE PACK, IV SITE LEFT HAND #22 G INTACT AND PATENT, NO REDNESS, NO INFILTRATION PRESENT, IVF RUNNING ORDERED, REMAINS COMFORTABLE AT THIS TIME, SAFETY PRECAUTIONS IN PLACE, LOW BED AND LOCKED, CALL LIGHT KEPT WITHIN REACH ALL NEEDS ATTENDED AT THIS TIME, WILL CONTINUE TO MONITOR. Addendum: 10/13/18 at 0133 by DINORAH BROTHERS RN RN MS OPENING NOTES
[2018-10-12 20:00] VITALS: BP 142/72
--- NOTE | 2018-10-12 20:05 | NUR ---
ESTEFANI MS NOTES RECEIVED CALL FROM [facility] PER PHARM WILL RESCHEDULE NEW DOSE AT 2100 AND WILL BRING NEW DOSE.
[2018-10-12 20:50] VITALS: BP 142/72
[2018-10-12] MEDS: VANCOMYCIN 1 GM in IV D5W 250 ML IV SCH (21:29)
[2018-10-12] MEDS: ATORVASTATIN 10 MG TABLET PO SCH (21:30)
[2018-10-12] MEDS ORDERED: INSULIN GLARGINE, 100 UNIT/ML CARTRIDGE SQ SCH (22:00)
[2018-10-13] MEDS: VANCOMYCIN 1 GM in IV D5W 250 ML IV SCH ×3 (04:29→21:51)
[2018-10-13] MEDS: IV NS 0.9% 1,000 ML IV PRN (04:31)
[2018-10-13] MEDS: BLOOD SUGAR DIAGNOSTIC 1 EACH STRIP IN SCH ×4 (05:58→21:51)
[2018-10-13] MEDS: INSULIN REGULAR, HUMAN 100 UNIT/ML 3 ML VIAL SQ PRN ×4 (05:58→21:52)
--- NOTE | 2018-10-13 06:00 | NUR ---
RN MS NOTES 178 BS 3 UNIT GIVEN SNACK PROVIDED
--- NOTE | 2018-10-13 06:27 | NUR ---
RN MS CLOSING NOTES PATIENT IN BED AWAKE ALERT AND ORIENTEDX4, RESPIRATIONS EVEN AND UNLABORED WITH EQUAL RISE AND FALL OF CHEST, PAIN MEDICATION OFFERED,PATIENT REFUSED AT THIS TIME STATES " IT FEELS BETTER".RIGHT HAND EDEMA PRESENT AND ELEVATED THROUGHOUT SHIFT,HAD 1 BM THIS SHIFT, IV TO LEFT HAND #22 INTACT AND PATENT, NO REDNESS, NO INFILTRATION PRESENT, IVF RUNNING ORDERED, ALL MEDS SURE GIVEN , NO CHANGES THROUGHOUT NIGHT, FLUIDS OFFERED AND SNACK PROVIDED, ALL NEEDS ATTENDED AT THIS TIME, SAFETY PRECAUTIONS IN PLACE, ALL NEEDS ATTENDED WILL CONTINUE TO MONITOR AND ENDORSE TO NEXT SHIFT.
[2018-10-13 07:21] LABS: CALCIUM, SERUM 8.3 mg/dL (8.5-10.1); POTASSIUM 3.7 mmol/L (3.5-5.1)
--- NOTE | 2018-10-13 07:33 | NUR ---
MS RN OPENING NOTE RECEIVED PT IN BED, ALERT AND ORIENTED X4. DENIES N/V, CHEST PAIN, SOB. BREATHING IS EVEN AND UNLABORED ON ROOM AIR. PT RATES PAIN 3/10 IN THE RIGHT WRIST AND TOLERABLE, NEUROVASCULAR STATUS AT BASELINE, HAND ELEVATED ON PILLOW AND ICE PACK IN PLACE. L HAND #22G IV IS INFUSING NS @ 75ML/HR WITHOUT REDNESS OR SWELLING. ALL NEEDS ATTENDED TO, BED IS LOCKED AND IN LOWEST POSITION, SIDE RAILS UP X2, CALL LIGHT WITHIN REACH.
[2018-10-13 08:00] VITALS: BP 157/93
[2018-10-13] MEDS: PROBENECID 500 MG TABLET PO SCH ×2 (08:58→16:56)
[2018-10-13] MEDS: COLCHICINE 0.6 MG TABLET PO SCH ×2 (08:58→16:56)
[2018-10-13] MEDS: ALLOPURINOL 100 MG TABLET PO SCH ×2 (08:58→16:55)
[2018-10-13] MEDS: SULINDAC 200 MG TABLET PO SCH ×2 (08:58→16:56)
[2018-10-13] MEDS: LEFLUNOMIDE 10 MG TABLET PO SCH (08:58)
[2018-10-13] MEDS: LISINOPRIL (10MG) 10 MG TABLET PO SCH (08:59)
[2018-10-13] MEDS: HYDROMORPHONE 1 MG/1 ML DISP.SYRIN IV PRN (12:19)
[2018-10-13 16:00] VITALS: BP 141/85
[2018-10-13] MEDS: CEFTRIAXONE 1 G in IV D5W 50 ML IV SCH (17:38)
[2018-10-13] MEDS: INSULIN ASPART/LISPRO 100 UNIT/ML CARTRIDGE SQ SCH (17:41)
--- NOTE | 2018-10-13 18:19 | NUR ---
MS RN CLOSING NOTE PT IN BED, ALERT AND ORIENTED X4. DENIES N/V, CHEST PAIN, SOB. BREATHING IS EVEN AND UNLABORED ON ROOM AIR. NEUROVASCULAR STATUS AT BASELINE. L HAND #22G IV IS INFUSING NS @ 75ML/HR WITHOUT REDNESS OR SWELLING. HAND IS ELEVATED ON PILLOWS ADVISED BY ORTHO. ALL NEEDS ATTENDED TO, BED IS LOCKED AND IN LOWEST POSITION, SIDE RAILS UP X2, CALL LIGHT WITHIN REACH. WILL ENDORSE TO LICENSE REGISTRATION EXAMINER RN FOR CONTINUITY OF CARE.
--- NOTE | 2018-10-13 19:20 | NUR ---
MS/RN NOTES RECEIVED PT. SITTING UP IN CHAIR. PT. IS AWAKE, ALERT AND ORIENTED X4. BREATHING EVEN AND UNLABORED ON ROOM AIR. NO SOB, RESPIRATORY DISTRESS OR COMPLAINTS OF PAIN NOTED AT THIS TIME. PT. WITH LEFT HAND 22 GAUGE PERIPHERAL IV PRESENT, PATENT AND INTACT ADMINISTERING TO PT. NS @ 75 ML/HR. PT. WITH RIGHT HAND NON-PITTING EDEMA PRESENT. PT. FAMILY MEMBER PRESENT AT BEDSIDE. BED LOCKED AND IN LOWEST POSITION, SIDE RAILS UP X2, CALL LIGHT WITHIN REACH, WILL CONTINUE TO MONITOR.
[2018-10-13 20:00] VITALS: BP 132/78
[2018-10-13] MEDS ORDERED: INSULIN GLARGINE, 100 UNIT/ML CARTRIDGE SQ SCH (22:00)
[2018-10-13] MEDS: ATORVASTATIN 10 MG TABLET PO SCH (22:02)
[2018-10-14] MEDS: VANCOMYCIN 1 GM in IV D5W 250 ML IV SCH (05:40)
[2018-10-14] MEDS: IV NS 0.9% 1,000 ML IV PRN (05:46)
[2018-10-14 06:43] LABS: CALCIUM, SERUM 8.3 mg/dL (8.5-10.1); CREATININE 0.9 mg/dL (0.6-1.3); POTASSIUM 4.1 mmol/L (3.5-5.1)
--- NOTE | 2018-10-14 06:50 | NUR ---
MS/RN NOTES PT. IS LYING IN BED AWAKE, ALERT AND ORIENTED X3. BREATHING EVEN AND UNLABORED ON ROOM AIR. NO SOB, RESPIRATORY DISTRESS OR COMPLAINTS OF PAIN NOTED AT THIS TIME. PT. WITH LEFT HAND 22 GAUGE PERIPHERAL IV PRESENT, PATENT AND INTACT ADMINISTERING TO PT. NS @ 75 ML/HR. PT. WITH RIGHT HAND NON-PITTING EDEMA PRESENT. ALL PT. NEEDS MET. BED LOCKED AND IN LOWEST POSITION, SIDE RAILS UP X2, CALL LIGHT WITHIN REACH, WILL ENDORSE TO DAYSHIFT NURSE FOR CONTINUITY OF CARE.
[2018-10-14] MEDS: BLOOD SUGAR DIAGNOSTIC 1 EACH STRIP IN SCH ×2 (07:02→12:22)
[2018-10-14] MEDS: INSULIN REGULAR, HUMAN 100 UNIT/ML 3 ML VIAL SQ PRN ×2 (07:03→12:22)
--- NOTE | 2018-10-14 07:35 | NUR ---
MS RN OPENING NOTE RECEIVED PT IN BED, ALERT AND ORIENTED X4. DENIES N/V, CHEST PAIN, SOB. BREATHING IS EVEN AND UNLABORED ON ROOM AIR, SATING WELL AT 98%HAND ELEVATED ON PILLOW AND ICE PACK IN PLACE. L HAND #22G IV IS INFUSING NS @ 75ML/HR WITHOUT REDNESS OR SWELLING. ALL SAFETY MEASURES OBSERVED, BED IS LOCKED AND IN LOWEST POSITION, SIDE RAILS UP X2, CALL LIGHT WITHIN REACH. CONTINUE TO MONITOR ACCORDINGLY.
[2018-10-14 08:15] VITALS: BP_SYST 109; BP_SYST 124; BP_DIAS 69; BP_DIAS 75
[2018-10-14] MEDS: SULINDAC 200 MG TABLET PO SCH (08:26)
[2018-10-14] MEDS: LEFLUNOMIDE 10 MG TABLET PO SCH (08:26)
[2018-10-14] MEDS: PROBENECID 500 MG TABLET PO SCH (08:26)
[2018-10-14] MEDS: COLCHICINE 0.6 MG TABLET PO SCH (08:26)
[2018-10-14 08:28] VITALS: BP 124/75
[2018-10-14] MEDS: LISINOPRIL (10MG) 10 MG TABLET PO SCH (08:28)
[2018-10-14] MEDS: ALLOPURINOL 100 MG TABLET PO SCH (08:32)
[2018-10-14] MEDS: INSULIN ASPART/LISPRO 100 UNIT/ML CARTRIDGE SQ SCH (08:43)
--- NOTE | 2018-10-14 12:59 | NUR ---
RN NOTES LEFT AT 12:55 ACCOMPANIED BY SON AND . ALL DISCHARGE PLANNING DISCUSSED WITH THE PATIENT. PATIENT VERBALIZES UNDERSTANDING FOR HOME HEALTH CARE AND TREATMENT. PATIENT LEFT IN STABLE CONDITION.
[2018-10-17] MEDS ORDERED: ERGOCALCIFEROL (VITAMIN D 2) 50,000 UNIT CAPSULE PO SCH (09:00)
== END 2018-10-14 13:00 | disposition home health service (06) | DRG 351 ==
LOC: MED 16:37
PROVIDERS: ADMIT Nurse Practitioner Acute Care; ATTEND Nurse Practitioner Acute Care
PROC: 05HY33Z Insertion of Infusion Device into Upper Vein, Percutaneous Approach (ICD-10-PCS; principal; 2018-10-14)
DX: M65.131 Other infective (teno)synovitis, right wrist (principal); E11.65 Type 2 diabetes mellitus with hyperglycemia; M10.9 Gout, unspecified; L03.113 Cellulitis of right upper limb; M06.9 Rheumatoid arthritis, unspecified; D72.829 Elevated white blood cell count, unspecified; I10 Essential (primary) hypertension; E78.5 Hyperlipidemia, unspecified; E78.1 Pure hyperglyceridemia; K21.9 Gastro-esophageal reflux disease without esophagitis; M18.9 Osteoarthritis of first carpometacarpal joint, unspecified; E66.9 Obesity, unspecified; Z68.38 Body mass index [BMI] 38.0-38.9, adult; Z71.3 Dietary counseling and surveillance
CPT/HCPCS: 36415; 36569; 73220-TC; 73221-TC; 80048-TC; 80061-TC; 80202-TC; 82962-TC; 83735-TC; 84100-TC; 85025-TC; 85652-TC; 86140-TC; 87081-TC; G0378; J0696; J1170; J1815; J2405; J3370; J3475; J7030; J7050; J7060; Z7610